=== PATIENT | female | born 1970 | race Caucasian/White ===

== ENCOUNTER → 2016-10-10 | Outpatient (CLI) | payer BC ==
[~2016-10-10] MED LIST: B-COTAB18 PO; CALC-393 PO; CALCTAB5 PO; LEVO50TA6 PO; LIOT5TAB PO; MULT-513 PO; PRENTAB26 PO
== END | disposition home or self-care (01) ==
LOC: C.LABSPEC 11:32
DX: R30.0 Dysuria (principal)

== ENCOUNTER 2016-11-25 08:32 | Day surgery (SDC) | payer BC ==
[2016-11-25] VITALS (10 sets, daily range): BP systolic 85–108; BP diastolic 44–63; PULSE 60–86; TEMP 36.4–36.9; O2SAT 95–100; Ht 170.2 cm; Wt 67.5 kg
[~2016-11-25] VITALS: Ht 170.2 cm; Wt 67.5 kg
[~2016-11-25 08:32] MED LIST changes: -B-COTAB18 PO; -CALC-393 PO; -LEVO50TA6 PO; -LIOT5TAB PO; -MULT-513 PO
[2016-11-25] MEDS ORDERED: LIOT5TAB PO (09:08)
[2016-11-25] MEDS ORDERED: LEVO50TA6 PO (09:08)
[2016-11-25] MEDS ORDERED: MULT-513 PO (09:08)
[2016-11-25] MEDS ORDERED: B-COTAB18 PO (09:10)
--- NOTE | 2016-11-25 10:33 | Discharge Instructions ---
Discharge Instructions Procedure Procedure Date: Nov 25, 2016. Reason for visit: Paraesthesia Of Lower Extremity. Discharge Discharge Date: Nov 25, 2016. Discharge Diagnosis: lower extremity paraesthesia Instructions Activity Recommendations: 1 Day-May resume regular activity Return to School/Work: no limitations Recommended Home Diet: Resume Previous Diet Allergies Coded Allergies: Morphine (Verified Allergy, Unknown, 11/25/16) Benjie Joiner Recommendations: Call your doctor if: * Temperature above 101 degrees * Pain not relieved by pain medicine ordered * There is increased drainage or redness from any incision * You have any unanswered questions or concerns. Your Doctors Instructions noted above were prepared by provider Erik Gambino. Patient Signature Section: Patient Instructions Signature Page Rebecca Madrid Patient (or Guardian) Signature/Date: I have read and understand the instructions given to me by my caregivers. Caregiver/RN/Doctor Signature/Date: The above-named patient and/or guardian has received patient instructions on this date. + Original Patient Signature Page (only) stays with chart. Please make copy for patient.
--- NOTE | 2016-11-25 10:40 | DIAGNOSTIC IMAGING REPORT ---
FLUOROSCOPICALLY GUIDED DIAGNOSTIC LUMBAR PUNCTURE CLINICAL HISTORY: Lower extremity paresthesias. Possible multiple sclerosis. COMPARISON STUDY: No previous studies for comparison. FINDINGS: The risks of procedure were explained the patient and informed consent was obtained. The patient was prepped and draped in sterile fashion. The skin was anesthetized with 1% lidocaine. A lumbar puncture was performed the L4-5 level under fluoroscopic guidance. The opening pressure was 12 cm of H2O. 8 cc of clear CSF was withdrawn under gravity drip. The fluid was 4 tubes and sent for laboratory analysis as specified by the referring clinician. There were no complications. IMPRESSION: Successful fluoroscopically guided diagnostic lumbar puncture, performed at the L4-5 level. 8 cc of clear CSF was withdrawn and sent for laboratory analysis. Electronically signed by: Erik Gambino M.D. 11/25/2016 10:39 AM Dictated Date/Time: 11/25/2016 10:36 AM
[2016-11-25] MEDS ORDERED: ACETAMINOPHEN 500 MG TAB PO PRN (10:45)
[2016-11-25 10:48] LABS: CSF CHEMISTRY TUBE # 1
[2016-11-25 10:54] LABS: CSF TOTAL PROTEIN 34.3 mg/dl (15.0-45.0)
[2016-11-25 11:08] LABS: CSF APPEARANCE CLEAR; CSF COLOR COLORLESS; CSF XANTHOCHROMIC NO XANTHOCHROMIA
[2016-12-01 07:13] LABS: IGG CSF 1.4 mg/dL (0.8-7.7); IGG SERUM 673 mg/dL (694-1618); LYME DNA PCR CSF OR SYNOVIAL Not detected (Not Detected); LYME DNA SOURCE CSF; LYME IGG CSF NO BANDS DETECTED; LYME IGM CSF NO BANDS DETECTED; MYELIN BASIC PROTEIN 663 <2.0 mcg/L (0.0-4.0)
== END 2016-11-25 14:28 | disposition home or self-care (01) ==
LOC: C.ACU 08:32
PROVIDERS: ATTEND Psychiatry & Neurology Neurology
DX: R20.2 Paresthesia of skin (principal)

== ENCOUNTER 2016-11-30 10:16 | Emergency (ER) | payer BC ==
[~2016-11-30] VITALS: Ht 170.2 cm; Wt 71.7 kg
[~2016-11-30 10:16] MED LIST changes: +B-COTAB18 PO; +LEVO50TA6 PO; +LIOT5TAB PO; +MULT-513 PO; -PRENTAB26 PO
[2016-11-30 10:25] VITALS: TEMP 36.5; Ht 170.2 cm; Wt 71.7 kg
[2016-11-30] MEDS ORDERED: CALC-393 PO (10:48)
[2016-11-30] MEDS ORDERED: SODIUM CHLORIDE 0.9% 1000ML 1,000 ML IV STA ×2 (11:08→13:41)
[2016-11-30] MEDS ORDERED: ONDANSETRON INJ 2 MG/ML 2 ML VIAL IV STA (11:08)
[2016-11-30] MEDS ORDERED: SODIUM CHLORIDE 0.9% 1000ML 1,000 ML IV ONE (11:08)
[2016-11-30] MEDS ORDERED: KETOROLAC TROMETHAMINE 30 MG/ML VIAL IV STA (11:08)
[2016-11-30 12:21] LABS: BUN/CREATININE RATIO 12.4 (10-20); CALCIUM 8.9 mg/dl (8.5-10.1); CREATININE 0.8 mg/dl (0.60-1.20)
[2016-11-30 12:24] LABS: POTASSIUM 4.2 mmol/L (3.5-5.1)
[2016-11-30 12:52] LABS: BASO % 0.2 %; BASO ABS # 0.02 K/uL (0-0.2); COMPLETE YES; EOS % 1.9 %; HEMATOCRIT 33.2 % (37-47); IG% 0.2 %; LYMPH ABS # 1.18 K/uL (1.2-3.4); MEAN CELL VOLUME 88.8 fL (80-100); MEAN CORPUSCULAR HEMOGLOBIN 31.3 pg (25-34); MEAN CORPUSCULAR HGB CONC 35.2 g/dl (32-36); MEAN PLATELET VOLUME 9.1 fL (7.4-10.4); MONO % 5.2 %; NEUT % 79.5 %; PLATELET COUNT 241 K/uL (130-400); RED BLOOD COUNT 3.74 M/uL (4.2-5.4); WHITE BLOOD COUNT 9.09 K/uL (4.8-10.8)
[2016-11-30] MEDS ORDERED: OXYCODONE HCL IR 5 MG TAB (IMMEDIATE RELEASE) PO STA (13:41)
--- NOTE | 2016-11-30 14:53 | Anesthesiology Progress Note ---
Anesthesia Progress Note Date of Service Nov 30, 2016. Progress Notes Ms. Madrid is a 45 year old female who presented to the ER today on 11/30/16 with complaints of a significant headache. She recently underwent a lumbar puncture via radiology on Monday for a workup for MS. She rested on Monday but upon resuming normal activities on Monday she started to have a headache that was worsened with standing upright for prolonged periods of time. She denied any dizziness, lightheadedness, N/V, vision changes but did sense some ear canal pressure with the headaches. The headaches have progressed since then and she came to the ER as she is now having trouble caring for her 7 year old son at home. On exam, patient did endorse the positional headache but said she could sit upright some it was just moving around caused problems. Vital signs were stable and CBC showed WBC of 9, H/H 11.7/33, platelets 241. Patient was afebrile. She denied any backpain and the LP site was non-tender, not red or indurated. I spoke at length with her regarding her treatment options that included do nothing, conservative therapy (fluids, caffeine, rest) or an epidural blood patch. She had already been hydrated via IVF this ER admission and given toradol with minimal relief. She and her agreed that she would want and epidural blood patch for improvement of symptoms knowing that these headaches usually get better on their own in 7-10 days regardless of the treatment strategy. Informed consent was obtained and placed in the chart. Patient had a working IV and was placed on ECG, blood pressure and SpO2 monitor. She had already received IVF prior to procedure. Epidural patch done in sitting position using a midline approach. 17 g Touchy needle was used with duraprep, drape and sterile technique. 1 ml of 1% lidocaine used for skin localization. Epidural space located using air on 1st attempt at 6cm. No paresthesias, no CSF return, no blood return. Blood was obtained by [employer] on right upper extremity using sterile technique. A total of 15ml of blood was slowly injected in divided doses into epidural space until patient felt mild lower back discomfort. She tolerated well and vital signs remained stable. She was counseled to remain supine for 1 hour and then avoid heavy lifting and straining for several days. She was told to come to the ER for any new or worsening symptoms. She wa also encouraged to drink caffeinated beverages to aid in CSF production. All questions were answered and report given to ER nurse prior to leaving patient. Joshua Barrera MD Staff Anesthesiologist
[2016-11-30 15:21] VITALS: BP 108/49; PULSE 86; O2SAT 99
--- NOTE | 2016-11-30 18:44 | EMERGENCY ROOM VISIT NOTE ---
History Report prepared by Saundra: Candi Anand Under the Supervision of: Dr. Bryan Samuel M.D. First contact with patient: 10:48 Chief Complaint: HEADACHE Stated Complaint: LUMBER PUNCTURE HEADACHE History of Present Illness The patient is a 45 year old female who presents to the Emergency Room with complaints of a headache starting 3 days ago and worsening yesterday. She had a lumbar puncture 5 days ago for concerns about multiple sclerosis and lyme's disease. The headache is located on her entire head. She has symptom improvement with lying down and placing pressure on her head. She denies fevers , chills, numbness, weakness, or any other complaints. She denies any chance of . She has a history of hypothyroidism. She denies any blood thinners. She is a housewife. The headache is worse with getting up and walking. She's been do more that the last day or so. No trauma. No focal numbness or weakness. Source of History: patient, spouse/significant other Onset: yesterday Position: head Timing: worsening Modifying Factors (Relieving): other (lying down and placing pressure on her head) Associated Symptoms: No chills, No fevers, No numbness, No weakness Review of Systems See HPI for pertinent positives & negatives. A total of 10 systems reviewed and were otherwise negative. Past Medical & Surgical Medical Problems: (1) Bulimia (2) Depression (3) Pneumothorax Old medical records were reviewed. Nurse's notes were reviewed and I agree with. Family History Patient reports no known family medical history. Social History Smoking Status: Former Smoker Drug Use: none Marital Status: Housing Status: lives with family Occupation Status: other (Housewife) Current/Historical Medications Scheduled B-Complex Vitamins (Vitamin B Complex), 1 TAB PO DAILY Calcium Carbonate (Calcium), 600 MG PO DAILY Levothyroxine Sodium (Levothyroxine Sodium), 1 TAB PO DAILY Liothyronine Sodium (Cytomel), 5 MCG PO BID Multivitamins/Minerals (Mvi With Minerals), 1 TAB PO DAILY Allergies Coded Allergies: Morphine (Verified Allergy, Unknown, 11/30/16) Physical Exam Vital Signs Date Time Temp Pulse Resp B/P Pulse Ox O2 Delivery O2 Flow Rate FiO2 11/30/16 15:21 86 18 108/49 99 11/30/16 14:32 78 18 101/53 100 Room Air 11/30/16 13:31 67 18 101/51 98 Room Air 11/30/16 12:17 64 18 98/52 97 Room Air 11/30/16 10:25 36.5 95 16 99/62 99 Room Air Physical Exam General: Non-ill appearing, middle aged female, in no acute distress. HEENT: Normal cephalic atraumatic. Pupils are equal round and reactive to light. Sclerae anicteric. Extraocular movements are intact. Oropharynx is pink with moist mucous membranes. No swelling of the mouth lips or tongue. Neck: Supple with a midline trachea. No meningeal signs or stiffness, no JVD or bruits. No Stridor. Negative Kernig and Brudzinski signs. Chest: Clear to auscultation bilaterally. No wheezes or rhonchi. No increased work of breathing. Heart: regular rate and rhythm. Abdomen: Soft nontender, nondistended without rebound guarding or rigidity. Extremities: No cyanosis clubbing or edema. No calf tenderness or assymetry Spine/Back. Non tender to palpation. No CVA tenderness. No redness, warmth, or tenderness. Skin: Good turgor without rashes. Neurologic exam: Cranial nerves two through 12 are intact. Motor and sensation are intact and symmetrical throughout. Medical Decision & Procedures Laboratory Results 11/30/16 12:40 Red Blood Count 3.74, Mean Corpuscular Volume 88.8, Mean Corpuscular Hemoglobin 31.3, Mean Corpuscular Hemoglobin Concent 35.2, Mean Platelet Volume 9.1, Neutrophils (%) (Auto) 79.5, Lymphocytes (%) (Auto) 13.0, Monocytes (%) (Auto) 5.2, Eosinophils (%) (Auto) 1.9, Basophils (%) (Auto) 0.2, Neutrophils # (Auto) 7.23, Lymphocytes # (Auto) 1.18, Monocytes # (Auto) 0.47, Eosinophils # (Auto) 0.17, Basophils # (Auto) 0.02 11/30/16 11:28 Test 11/30/16 11:28 11/30/16 12:40 Anion Gap 8.0 mmol/L (3-11) Est Creatinine Clear Calc Drug Dose 84.6 ml/min Estimated GFR () 101.8 Estimated GFR (Non- 87.8 BUN/Creatinine Ratio 12.4 (10-20) Calcium Level 8.9 mg/dl (8.5-10.1) White Blood Count 9.09 K/uL (4.8-10.8) Red Blood Count 3.74 M/uL (4.2-5.4) Hemoglobin 11.7 g/dL (12.0-16.0) Hematocrit 33.2 % (37-47) Mean Corpuscular Volume 88.8 fL (80-100) Mean Corpuscular Hemoglobin 31.3 pg (25-34) Mean Corpuscular Hemoglobin Concent 35.2 g/dl (32-36) Platelet Count 241 K/uL (130-400) Mean Platelet Volume 9.1 fL (7.4-10.4) Neutrophils (%) (Auto) 79.5 % Lymphocytes (%) (Auto) 13.0 % Monocytes (%) (Auto) 5.2 % Eosinophils (%) (Auto) 1.9 % Basophils (%) (Auto) 0.2 % Neutrophils # (Auto) 7.23 K/uL (1.4-6.5) Lymphocytes # (Auto) 1.18 K/uL (1.2-3.4) Monocytes # (Auto) 0.47 K/uL (0.11-0.59) Eosinophils # (Auto) 0.17 K/uL (0-0.5) Basophils # (Auto) 0.02 K/uL (0-0.2) RDW Standard Deviation 41.2 fL (36.4-46.3) RDW Coefficient of Variation 12.7 % (11.5-14.5) Immature Granulocyte % (Auto) 0.2 % Immature Granulocyte # (Auto) 0.02 K/uL (0.00-0.02) Laboratory studies as stated above per my review. Medications Administered Medications (Trade) Dose Ordered Sig/[place] Route Start Time Stop Time Status Last Admin Dose Admin Sodium Chloride 1,000 ml @ 999 mls/hr Q1H1M STAT IV 11/30/16 11:08 11/30/16 12:08 DC 11/30/16 11:31 999 MLS/HR Sodium Chloride (Nss 1000ml) 1,000 ml @ 200 mls/hr Q5H ONCE IV 11/30/16 11:08 11/30/16 15:42 DC 11/30/16 12:16 200 MLS/HR Ondansetron HCl (Zofran Inj) 4 mg NOW STAT IV 11/30/16 11:08 11/30/16 11:09 DC 11/30/16 11:38 4 MG Ketorolac Tromethamine 30 mg 30 mg NOW STAT IV 11/30/16 11:08 11/30/16 11:09 DC 11/30/16 11:39 30 MG Sodium Chloride (Nss 1000ml) 1,000 ml @ 999 mls/hr Q1H1M STAT IV 11/30/16 13:41 11/30/16 14:41 DC 11/30/16 13:55 999 MLS/HR Oxycodone HCl (Roxicodone Immediate Rel Tab) 5 mg NOW STAT PO 11/30/16 13:41 11/30/16 13:42 DC 11/30/16 13:54 5 MG ED Course 1048: Past medical records reviewed. The patient was evaluated in room B08, and a complete history and physical examination were performed. 1108: Toradol Inj 30 mg IV, Zofran Inj 4 mg IV, Sodium Chloride 1000 ml @ 200 mls/hr IV, Sodium Chloride 1000 ml @ 999 mls/hr IV 1340: I reevaluated the patient who continues to complain of her pain. 1341: Oxycodone HCl 5 mg PO, Sodium Chloride 1000 ml @ 999 mls/hr IV 1344: I discussed the patient's case with the anesthesiologist from [facility]. 1459: Upon reevaluation, the patient is feeling better. I discussed the results and treatment plan with her. She verbalized agreement of the treatment plan. The patient was discharged home. Medical Decision Differential diagnosis includes but is not limited to spinal headache, infection , electrolyte or metabolic abnormalities. This patient comes in as described above. She was placed in room B8. She is here for treatment and evaluation of a headache. She had a spinal tap done on Monday for evaluation for possible Lyme disease and MS among other medical problems. She's been more active over the last couple days and at and headaches increased. It is deftly positional. She's had no trauma. She looks well on exam when laying down. I looked at the site and it looks normal without any redness. She has a normal neurologic exam. IV access established and she was hydrated with IV normal saline. She was given IV Toradol and she felt better but when she got up to walk she said the headache came back shortly. She has no significant electrolyte or metabolic abnormalities and she' s not anemic and has nothing to suggest infection. I talked about the options. I gave her a second liter IV normal saline fluid bolus and OxyIR 5 mg by mouth. She does desire to have a blood patch. I did call anesthesia they came and performed a blood patch in the ER. The patient feels better and up to going home. She laid flat for about an hour rest and drink plenty fluids and. I did give her a small prescription for OxyIR she can use if needed for any residual pain and I warned her that it could make her drowsy, do not take for drinking, driving, working. She should return if: Increasing pain, numbness or weakness, worsening of symptoms, any problems or concerns. She is happy with plan and discharged to home. Consults Time Called: [id number] Consulting Physician: anesthesiologist from [facility] Returned Call: [phone] I discussed the patient's case with the anesthesiologist from [facility]. Impression Primary Impression: Spinal headache Scribe Attestation The scribe's documentation has been prepared under my direction and personally reviewed by me in its entirety. I confirm that the note above accurately reflects all work, treatment, procedures, and medical decision making performed by me. Departure Information Dispostion Home / Self-Care Referrals Eder Lujan Jr,D.O. (PCP) Forms HOME CARE DOCUMENTATION FORM, IMPORTANT VISIT INFORMATION Patient Instructions My [facility] Additional Instructions Rest. Drink plenty of fluids. Increase your caffeine intake If you have severe pain, may try oxycodone IR 5 mg, one to 2 pills every 6 hours as needed OxyIR may make you drowsy- do not take for drinking, driving, working. Return if: Increasing pain, numbness or weakness, feveror chills, any new problems or concerns. Follow-up with your doctor this week for recheck.
== END 2016-11-30 15:23 | disposition home or self-care (01) ==
LOC: C.EDB 10:17
DX: T88.59XA Other complications of anesthesia, initial encounter (principal); R51 Headache; F32.9 Major depressive disorder, single episode, unspecified; F50.2 Bulimia nervosa; T41.1X5A Adverse effect of intravenous anesthetics, initial encounter; Z87.891 Personal history of nicotine dependence